=== PATIENT | male | born 1950 | race Caucasian/White ===

== ENCOUNTER → 2021-03-15 | Outpatient (CLI) | payer OTHER ==
[~2021-03-15] MED LIST: ACET325 PO; ALBU3IS INH; ATOR40TA PO; BUME2 PO; CHOL10002 PO; CITA20 PO; CRUTCH3 XX; CYCL10 PO; Catapres-Tts 11 EACH TD; DIGO.25 PO; DILT120ERA PO; DOCU100; DOCU100 PO; Excedrin Extra1 EACH PO; FURO40 PO; GABA600 PO; GAVILAX17 G1 PO; GLIP10 PO; HYDACE10B PO; INS70/30PN SC; INSU100I6; Kaon-Cl40 MEQ/15; LIDO5TP TOP; LORA.5 PO; METO100ER PO; NORT25 PO; NYST100P TOP; Norco 5-325 Ta1 EACH PO; OSEL75CA PO; PRED10; Refresh Plus1 EACH OP; SPIR50 PO; Ventolin Soln3 ML INH; WARF7.5 PO; XARELTO20 MG PO; ZESTORETIC 20-121 EA
[2021-03-15 16:37] LABS: Creatinine Urine 64.7 mg/dL (27.00-270.00); Protein, Urine Quantitative 109.6 mg/dL (0.0-11.9)
== END | disposition home or self-care (01) ==
LOC: LAB SHORT 08:30 → LAB 08:30 → LAB FUT 03-13 13:05
PROVIDERS: Internal Medicine Nephrology
DX: N18.30 Chronic kidney disease, stage 3 unspecified (principal); D63.1 Anemia in chronic kidney disease; N25.81 Secondary hyperparathyroidism of renal origin; E55.9 Vitamin D deficiency, unspecified; E78.00 Pure hypercholesterolemia, unspecified; D51.8 Other vitamin B12 deficiency anemias; D52.8 Other folate deficiency anemias; D50.9 Iron deficiency anemia, unspecified; R76.9 Abnormal immunological finding in serum, unspecified; R94.5 Abnormal results of liver function studies; R94.6 Abnormal results of thyroid function studies
CPT/HCPCS: 81050; 82043; 82570; 84156

== ENCOUNTER → 2022-01-07 | Outpatient (CLI) | payer OTHER, MEDICARE ==
[2022-01-07 11:28] LABS: BASOPHILS ABSOLUTE AUTO 0.07 K/mm3 (0.00-0.23); BASOPHILS PERCENT AUTO 1 % (0-2); EOSINOPHILS ABSOLUTE AUTO 0.08 K/mm3 (0.00-0.68); EOSINOPHILS PERCENT AUTO 1 % (0-6); Hematocrit 46.3 % (37.0-53.0); Hemoglobin 15.7 g/dL (13.5-17.5); IMMATURE GRAN ABSOLUTE AUTO 0.05 K/mm3 (0.00-0.10); IMMATURE GRAN PERCENT AUTO 1 % (0-1); LYMPHOCYTES ABSOLUTE AUTO 1.18 K/mm3 (0.84-5.20); LYMPHOCYTES PERCENT AUTO 13 % (21-46); MONOCYTES ABSOLUTE AUTO 0.46 K/mm3 (0.16-1.47); MONOCYTES PERCENT AUTO 5 % (4-13); Mean Corpuscular HGB 38.6 pg (26.0-34.0); Mean Corpuscular HGB Conc 33.9 g/dL (31.5-36.5); Mean Corpuscular Volume 114 fL (80-100); Mean Platelet Volume 10.1 fL (9.1-12.4); NEUTROPHILS ABSOLUTE AUTO 7.18 K/mm3 (1.96-9.15); NEUTROPHILS PERCENT AUTO 80 % (41-73); Platelet Count 137 K/mm3 (150-400); RDW Standard Deviation 59.7 fL (35.1-46.3); Red Blood Cell Count 4.07 M/mm3 (4.30-5.90); White Blood Cell Count 9.02 K/mm3 (4.00-11.30)
== END | disposition home or self-care (01) ==
LOC: LAB FUT 09-15 10:10 → LAB SHORT 10:28
PROVIDERS: Internal Medicine Hematology & Oncology
DX: D45 Polycythemia vera (principal)
CPT/HCPCS: 36415; 85025

== ENCOUNTER → 2023-02-09 | Outpatient (CLI) | payer OTHER ==
[2023-02-10 12:24] LABS: Creatinine Urine 26.2 mg/dL (27.00-270.00); Protein, Urine Quantitative 77.7 mg/dL (0.0-11.9)
== END ==
LOC: LAB 06:42 → LAB SHORT 06:42
PROVIDERS: Internal Medicine Nephrology
DX: N18.2 Chronic kidney disease, stage 2 (mild) (principal); D63.1 Anemia in chronic kidney disease; N25.81 Secondary hyperparathyroidism of renal origin; E78.00 Pure hypercholesterolemia, unspecified
CPT/HCPCS: 81050; 82043; 82570; 84156

== ENCOUNTER → 2023-11-21 | Outpatient (CLI) | payer OTHER ==
[2023-11-21 11:44] LABS: Creatinine Urine 33.9 mg/dL (27.00-270.00)
== END | disposition home or self-care (01) ==
LOC: LAB SHORT 10:10 → LAB FUT 11-18 10:45 → EDSTATUS 11-18 10:45
PROVIDERS: Internal Medicine Nephrology
DX: N18.30 Chronic kidney disease, stage 3 unspecified (principal); D63.1 Anemia in chronic kidney disease; N25.81 Secondary hyperparathyroidism of renal origin; E78.00 Pure hypercholesterolemia, unspecified; R76.9 Abnormal immunological finding in serum, unspecified; R94.5 Abnormal results of liver function studies; R94.6 Abnormal results of thyroid function studies; E55.9 Vitamin D deficiency, unspecified
CPT/HCPCS: 81050; 82043; 82570; 84156

== ENCOUNTER 2023-12-30 09:27 | Day surgery (SDC) | payer OTHER ==
[~2023-12-30] VITALS: Ht 180.3 cm; Wt 89.9 kg
[~2023-12-30 09:27] MED LIST changes: +ALLO300 PO; +Balanced Salt Epinephrine Irrigation Solution 500 mL IR SCH; +CALC.25 PO; +DIGOX250 MCG PO; +FAMO20; +HYDURE500 PO; +JARDIANCE10 MG PO; +LISI20 PO; +Lidocaine HCl/Pf 1% 5 ML VIAL XX SCH; +METO100 PO; +Moxifloxacin HCL 0.5 MG/0.1 ML 0.4MLSYR LEFTEYE SCH; +NS 500 ML IV ONE; +OMEP20ER PO; +PHENYLEPHRINE\\TROPICAMIDE\\TETRACAINE OPHTHALMIC DILATING SOLN LEFTEYE PRN; +Povidone-Iodine 450 DROP/30 ML Solution LEFTEYE SCH; +SPIR25 PO; +WEGOVY0.5 MG/0.5 SQ
[2023-12-30] MEDS ORDERED: NS 500 ML IV ONE (09:58)
--- NOTE | 2023-12-30 09:58 | NUR ---
12/30/23 0958 Fabienne Borrero AT 0935 [address] AT 0906
[2023-12-30] MEDS ORDERED: FentaNYL Citrate 50 MCG/ML 2 ML Injection ONE (11:21)
[2023-12-30] MEDS ORDERED: Midazolam HCl 1MG / ML 2ML Vial ONE (11:21)
[2023-12-30] MEDS ORDERED: Tetracaine HCl 0.5% Opth Soln 15 ml XX ONE (11:40)
[2023-12-30 12:31] VITALS: BP 152/92
--- NOTE | 2023-12-30 13:21 | NUR ---
12/30/23 1321 [place] PATIENT INTO STEPDOWN, OXYGEN WAS 90-92. KAREN KEANE PUT ON 3L OXYGEN VIA N/C. OXYGEN WENT BACK UP TO 96%. PATIENT THEN HAD TO USE THE RESTROOM. WHEN PATIENT GOT BACK FROM RESTROOM THEY WERE PUT BACK ON PULSE OX. PATIENT WAS AT 92. KAREN BOYD ENCOURGED PATIENT TO TAKE DEEP BREATHS AND OXYGEN SATS WENT UP TO 96% ROOM AIR. PATIENT WAS MONITORED ON PULSE OX UNTIL D/C AND PATIENT STAYED 92%-98% ON ROOM AIR. . PATIENT DENIED SOB, AND DENIED FEELING DIZZY. NICOLE HOOVER CRNA WAS CONSULTED ABOUT THE ABOVE NOTE AND STATED IT WAS OKAY TO D/C PATIENT.
== END 2023-12-30 12:51 | disposition home or self-care (01) ==
LOC: ORSCSDS 09:27
PROVIDERS: Student in an Organized Health Care Education/Training Program
PROC: 08RK3JZ Replacement of Left Lens with Synthetic Substitute, Percutaneous Approach (ICD-10-PCS; principal; 2023-12-30 13:45)
DX: E11.36 Type 2 diabetes mellitus with diabetic cataract (principal); H25.812 Combined forms of age-related cataract, left eye; H52.202 Unspecified astigmatism, left eye; H21.81 Floppy iris syndrome; Z96.1 Presence of intraocular lens; Z87.891 Personal history of nicotine dependence; E11.22 Type 2 diabetes mellitus with diabetic chronic kidney disease; I12.9 Hypertensive chronic kidney disease with stage 1 through stage 4 chronic kidney disease, or unspecified chronic kidney disease; N18.9 Chronic kidney disease, unspecified; G47.33 Obstructive sleep apnea (adult) (pediatric); K21.9 Gastro-esophageal reflux disease without esophagitis; I48.91 Unspecified atrial fibrillation; E78.5 Hyperlipidemia, unspecified; F43.10 Post-traumatic stress disorder, unspecified; I50.9 Heart failure, unspecified; Z79.01 Long term (current) use of anticoagulants; Z79.84 Long term (current) use of oral hypoglycemic drugs; Z79.899 Other long term (current) drug therapy; Z79.4 Long term (current) use of insulin
CPT/HCPCS: 82947; J2250; J3010; J7040; V2632

== ENCOUNTER → 2024-03-04 | Outpatient (CLI) | payer OTHER ==
[~2024-03-04] MED LIST changes: -Balanced Salt Epinephrine Irrigation Solution 500 mL IR SCH; -Lidocaine HCl/Pf 1% 5 ML VIAL XX SCH; -Moxifloxacin HCL 0.5 MG/0.1 ML 0.4MLSYR LEFTEYE SCH; -NS 500 ML IV ONE; -PHENYLEPHRINE\\TROPICAMIDE\\TETRACAINE OPHTHALMIC DILATING SOLN LEFTEYE PRN; -Povidone-Iodine 450 DROP/30 ML Solution LEFTEYE SCH
[2024-03-04 11:27] LABS: Creatinine Urine 35.8 mg/dL (27.00-270.00); Protein, Urine Quantitative 85.1 mg/dL (0.0-11.9)
== END | disposition home or self-care (01) ==
LOC: LAB 07:00 → LAB SHORT 07:00 → LAB FUT 03-02 11:10
PROVIDERS: Internal Medicine Nephrology
DX: N18.30 Chronic kidney disease, stage 3 unspecified (principal); D63.1 Anemia in chronic kidney disease; N25.81 Secondary hyperparathyroidism of renal origin; E55.9 Vitamin D deficiency, unspecified; R76.9 Abnormal immunological finding in serum, unspecified; R94.5 Abnormal results of liver function studies; R94.6 Abnormal results of thyroid function studies
CPT/HCPCS: 81050; 82043; 82570; 84156